=== PATIENT | female | born 2000 | race Hispanic/Latino ===

== ENCOUNTER 2022-02-08 14:56 | Inpatient (IN) | payer MEDICAID, OTHER, SELFPAY ==
[~2022-02-08 14:56] MED LIST: Lidocaine 2% MPF 10 ML AMP (For Epidural Use) ONE
[2022-02-08 15:27] VITALS: BMI 33.2
[2022-02-08] MEDS ORDERED: Promethazine HCl 25 MG/ML VIAL IM PRN ×2 (15:45→18:33)
[2022-02-08] MEDS ORDERED: hydrALAZINE 20 MG/ML VIAL SLOW IVP PRN (15:45)
[2022-02-08] MEDS ORDERED: HYDROcodone/Acetaminophen 5/325 mg Tablet PO PRN ×2 (15:45)
[2022-02-08] MEDS ORDERED: Ibuprofen 800 MG TAB PO PRN (15:45)
[2022-02-08] MEDS ORDERED: Lidocaine 1% (PF) 30 ML VIAL SC PRN (15:45)
[2022-02-08] MEDS ORDERED: Penicillin G Potassium 5 MILL.UNITS in Sodium Chloride 0.9% 100 ML IVPB SCH (15:45)
[2022-02-08] MEDS ORDERED: Lactated Ringer's 1,000 ML IV SCH ×2 (15:45)
[2022-02-08] MEDS ORDERED: Butorphanol Tartrate 1 MG/ML VIAL SLOW IVP PRN (15:45)
[2022-02-08] MEDS ORDERED: Ondansetron PF 4 MG/2 ML Vial IVP PRN ×2 (15:45→18:33)
[2022-02-08] MEDS ORDERED: NS w/ Oxytocin 30 units 500 ML IV SCH ×2 (15:45)
[2022-02-08] MEDS ORDERED: Penicillin G Potassium 5 MILL.UNITS VIAL ONE (15:47)
[2022-02-08 16:39] LABS: Hemoglobin 12.4 g/dL (12.0-15.5); Mean Corpuscular HGB CONC 34.2 g/dL (32.0-36.0); Mean Corpuscular Hemoglobin 28.1 pg (27.0-33.0); Mean Corpuscular Volume 82.1 fl (81.6-98.3); Mean Platelet Volume 14.3 fl (7.4-10.4); Platelet Count 147 10x3/uL (150-450); RBC Distribution Width 13.5 % (11.5-14.5); Red Blood Cell (RBC) Count 4.42 10x6/uL (3.90-5.03); White Blood Cell (WBC) Count 7.7 10x3/uL (3.5-10.5)
[2022-02-08 17:14] LABS: HBSAg Index 0.18 S/CO (0-0.99); HIV (1/2) Antibody/Antigen Non-Reactive (NonReactive); HIV 1/2 INDEX 0.12 S/CO (<1.00); Hep B Surf Ag Non-Reactive S/CO (NonReactive)
[2022-02-08 17:14] LABS: Syphilis Antibody Nonreactive (Nonreactive); Syphilis Antibody Index 0.03 S/CO (<1.00 Non-Reactive)
[2022-02-08 17:29] LABS: SARS-CoV-2 NAA Rapid Test Not Detected (NotDetected)
[2022-02-08] MEDS ORDERED: Fentanyl 2 mcg/Bup 0.1% Cadd 100 ML ONE (18:01)
[2022-02-08] MEDS ORDERED: Naloxone HCl 0.4 mg/ml Vial IVP PRN ×2 (18:33)
[2022-02-08] MEDS ORDERED: Moisturizing Cream (Eucerin) 113 GM JAR TOP PRN (18:33)
[2022-02-08] MEDS ORDERED: diphenhydrAMINE 50 MG/ML VIAL IVP PRN (18:33)
[2022-02-08] MEDS ORDERED: Acetaminophen 325 MG TAB PO PRN (18:33)
[2022-02-08] MEDS ORDERED: ePHEDrine Sulfate 50 MG/10 ML VIAL SLOW IVP PRN (18:33)
[2022-02-08] MEDS ORDERED: Fentanyl 2 mcg/Bupivacaine 0.1% Cassette 100 ML EPIDURAL SCH (18:45)
[2022-02-08] MEDS ORDERED: Communication Order-Pharmacy FS SCH (18:45)
[2022-02-08] MEDS ORDERED: Lactated Ringer's 500 ML IV PRN (18:55)
[2022-02-08 19:00] LABS: Amphetamine Not Detected (NotDetected); Barbiturates Screen Detected (NotDetected); Benzodiazepine Screen Not Detected (NotDetected); Cocaine Metabolite Screen Not Detected (NotDetected); Methadone Not Detected (NotDetected); Methamphetamine Not Detected (NotDetected); Opiate Screen Not Detected (NotDetected); Oxycodone Screen Not Detected (NotDetected); Phencyclidine (PCP) Not Detected (NotDetected); THC/Cannabinoid Screen Not Detected (NotDetected); Tricyclic Screen Not Detected (NotDetected)
[2022-02-08] MEDS ORDERED: Penicillin G 2.5 MILL.units 2.5 MILL.UNITS in Premix Bag 1 BAG IVPB SCH (19:45)
[2022-02-08] MEDS ORDERED: Lidocaine 1% (PF) 30 ML VIAL ONE (21:36)
[2022-02-08] MEDS ORDERED: NS w/ Oxytocin 30 units 500 ML ONE (21:37)
[2022-02-08 22:42] LABS: HBSAB Concentration 153.24 mIU/mL; Hep B Surf AB Reactive (NonReactive)
[2022-02-09] MEDS ORDERED: Benzocaine-Menthol 82.5 ML CAN TOP PRN (01:42)
[2022-02-09] MEDS ORDERED: Milk Of Magnesia 30 ML UDCUP PO PRN (01:42)
[2022-02-09] MEDS ORDERED: diphenhydrAMINE 25 MG CAP PO PRN (01:42)
[2022-02-09] MEDS ORDERED: NS w/ Oxytocin 30 units 500 ML IV SCH (01:42)
[2022-02-09] MEDS ORDERED: Promethazine HCl 25 MG/ML VIAL IM PRN (01:42)
[2022-02-09] MEDS ORDERED: Ondansetron PF 4 MG/2 ML Vial IVP PRN (01:42)
[2022-02-09] MEDS ORDERED: hydrALAZINE 20 MG/ML VIAL SLOW IVP PRN (01:42)
[2022-02-09] MEDS ORDERED: Preparation H Ointment 28 GM TUBE PR PRN (01:42)
[2022-02-09] MEDS ORDERED: Boostrix 0.5 ML (Tdap) VIAL (>/=7 yrs of age) IM ONE (01:42)
[2022-02-09] MEDS ORDERED: HYDROcodone/Acetaminophen 5/325 mg Tablet PO PRN ×2 (01:42)
[2022-02-09] MEDS ORDERED: Bisacodyl 10 MG SUPP PR PRN (01:42)
[2022-02-09] MEDS: Ibuprofen 800 MG TAB PO SCH ×3 (06:22→17:27)
[2022-02-09] MEDS: Prenatal Vitamin 1 TAB PO SCH (09:05)
[2022-02-09] MEDS: Docusate 100 MG CAP PO SCH ×2 (09:05→20:34)
[2022-02-10] MEDS: Prenatal Vitamin 1 TAB PO SCH (07:53)
[2022-02-10] MEDS: Docusate 100 MG CAP PO SCH (07:53)
[2022-02-10] MEDS: Ibuprofen 800 MG TAB PO SCH ×2 (07:54)
[2022-02-10 08:21] VITALS: BP 135/67; TEMP 97.8
[2022-02-10] MEDS ORDERED: Ibuprofen 800 MG TAB PO SCH (14:00)
== END 2022-02-10 19:00 | disposition home or self-care (01) | DRG 807 ==
LOC: CSHLD/OP 14:56 → CSHLD 18:18 → CSHPP 02-09 02:10
PROVIDERS: ADMIT Obstetrics & Gynecology; ATTEND Obstetrics & Gynecology
PROC: 10E0XZZ Delivery of Products of Conception, External Approach (ICD-10-PCS; principal; 2022-02-08)
PROC: 0KQM0ZZ Repair Perineum Muscle, Open Approach (ICD-10-PCS; 2022-02-08)
DX: O99.324 Drug use complicating childbirth (principal); Z37.0 Single live birth; O70.1 Second degree perineal laceration during delivery; Z3A.39 39 weeks gestation of pregnancy; Z20.822 Contact with and (suspected) exposure to COVID-19; F19.90 Other psychoactive substance use, unspecified, uncomplicated
CPT/HCPCS: 36415; 51702; 80306; 85027; 86706; 86762; 86780; 86850; 86900; 86901; 87340; 87389; 99285; J2540; J2590; J7120; U0002

== ENCOUNTER 2022-12-10 22:12 | Observation (INO) | payer SELFPAY ==
[2022-12-11] MEDS ORDERED: Ondansetron PF 4 MG/2 ML Vial ONE ×2 (00:52→14:54)
[2022-12-11] MEDS ORDERED: Ketorolac Tromethamine 30 MG/ML VIAL ONE ×2 (00:52→14:54)
[2022-12-11 00:53] LABS: #Eosinphils 0.1 10x3/uL (0.0-0.5); #Monocytes 0.6 10x3/uL (0.0-1.1); #Neutrophils 6.5 10x3/uL (1.5-8.4); %Basophils 0.4 % (0.0-2.0); %Eosinophils 0.9 % (0.0-6.0); %Lymphocytes 23.2 % (18.0-47.0); %Monocytes 6.4 % (0.0-10.0); %Neutrophils 67.9 % (40.0-75.0); Hemoglobin 13.4 g/dL (12.0-15.5); Mean Corpuscular HGB CONC 33.4 g/dL (32.0-36.0); Mean Corpuscular Hemoglobin 29.2 pg (27.0-33.0); Mean Corpuscular Volume 87.4 fl (81.6-98.3); Platelet Count 203 10x3/uL (150-450); RBC Distribution Width 12.3 % (11.5-14.5); Red Blood Cell (RBC) Count 4.59 10x6/uL (3.90-5.03); White Blood Cell (WBC) Count 9.6 10x3/uL (3.5-10.5)
[2022-12-11 01:07] LABS: ALT (SGPT) 428 U/L (8-55); AST (SGOT) 239 U/L (5-34); Albumin 3.9 g/dL (3.5-5.0); Alkaline Phosphatase 95 U/L (40-110); Anion Gap 12 mmol/L (10-20); BUN (Urea Nitrogen) 6 mg/dL (7.0-18.7); Bilirubin, Total 1.5 mg/dL (0.2-1.2); Calc. Creatinine Clearance 0 mL/min (70-130); Calcium 8.5 mg/dL (7.8-10.44); Carbon Dioxide 23 mmol/L (22-29); Chloride 107 mmol/L (98-107); Estimated GFR 122; Globulin 3.1 g/dL (2.4-3.5); Glucose 109 mg/dL (70-105); Lipase 29 U/L (8-78); Potassium 3.2 mmol/L (3.5-5.1); Sodium 139 mmol/L (136-145)
[2022-12-11] MEDS ORDERED: Ondansetron PF 4 MG/2 ML Vial IVP PRN (02:30)
[2022-12-11] MEDS ORDERED: Morphine 4 MG/ML VIAL SLOW IVP PRN (02:32)
[2022-12-11] MEDS ORDERED: Ketorolac Tromethamine 30 MG/ML VIAL IVP PRN (02:32)
[2022-12-11] MEDS ORDERED: Potassium Chloride 20 MEQ in Premix Bag 1 BAG IVPB SCH (02:45)
[2022-12-11] MEDS ORDERED: Potassium Chloride 20 MEQ/100 ML PREMIX BAG ONE (03:10)
[2022-12-11] MEDS: Sodium Chloride 0.9% 1,000 ML IV SCH ×2 (03:24→18:49)
[2022-12-11 04:15] LABS: #Eosinphils 0.1 10x3/uL (0.0-0.5); #Monocytes 0.8 10x3/uL (0.0-1.1); #Neutrophils 5.7 10x3/uL (1.5-8.4); %Basophils 0.4 % (0.0-2.0); %Eosinophils 1.5 % (0.0-6.0); %Lymphocytes 26.2 % (18.0-47.0); %Neutrophils 61.7 % (40.0-75.0); Mean Corpuscular HGB CONC 34.1 g/dL (32.0-36.0); Mean Corpuscular Hemoglobin 29.7 pg (27.0-33.0); Mean Platelet Volume 11.6 fl (7.4-10.4); Platelet Count 196 10x3/uL (150-450); RBC Distribution Width 12.3 % (11.5-14.5); Red Blood Cell (RBC) Count 4.38 10x6/uL (3.90-5.03); White Blood Cell (WBC) Count 9.3 10x3/uL (3.5-10.5)
[2022-12-11 04:31] LABS: Anion Gap 15 mmol/L (10-20); BUN (Urea Nitrogen) 6 mg/dL (7.0-18.7); Calc. Creatinine Clearance 151 mL/min (70-130); Carbon Dioxide 22 mmol/L (22-29); Chloride 107 mmol/L (98-107); Potassium 3.5 mmol/L (3.5-5.1); Sodium 140 mmol/L (136-145)
[2022-12-11 04:32] LABS: ALT (SGPT) 383 U/L (8-55); AST (SGOT) 219 U/L (5-34); Albumin 3.6 g/dL (3.5-5.0); Alkaline Phosphatase 97 U/L (40-110); Bilirubin, Total 2.2 mg/dL (0.2-1.2); Calcium 8.2 mg/dL (7.8-10.44); Estimated GFR 125; Globulin 2.9 g/dL (2.4-3.5); Glucose 94 mg/dL (70-105); Protein, Total 6.5 g/dL (6.0-8.3)
[2022-12-11] MEDS ORDERED: Acetaminophen 500 MG TAB PO PRN (10:25)
[2022-12-11] MEDS ORDERED: traMADol HCl 50 MG TAB PO PRN (10:25)
[2022-12-11] MEDS ORDERED: LevoFLOXacin 750 mg/D5W 750 MG in Premix Bag 1 BAG IVPB SCH (11:00)
[2022-12-11] MEDS ORDERED: Acetaminophen 500 MG TAB PO SCH (11:00)
[2022-12-11] MEDS ORDERED: Ketorolac Tromethamine 30 MG/ML VIAL IVP SCH ×2 (11:00→18:00)
[2022-12-11] MEDS ORDERED: Scopolamine 1.5 mg/72 hour Patch TD SCH (11:00)
[2022-12-11] MEDS ORDERED: Bupivacaine HCl 0.5%/Epinephrine 1:200,000/PF 30 ml Vial ONE (12:59)
[2022-12-11] MEDS ORDERED: PROPOFOL 20 ML ONE (14:53)
[2022-12-11] MEDS ORDERED: Lidocaine 1% PF 5 ML VIAL ONE (14:54)
[2022-12-11] MEDS ORDERED: Rocuronium Bromide 10 MG/ML (10ML VIAL) ONE (14:54)
[2022-12-11] MEDS ORDERED: Midazolam HCl 2 mg/2 ml Vial ONE (14:54)
[2022-12-11] MEDS ORDERED: fentaNYL 50 mcg/mL 1 mL Vial ONE ×2 (14:54→17:06)
[2022-12-11] MEDS ORDERED: Dexamethasone 4 mg/ml Vial ONE (14:54)
[2022-12-11] MEDS ORDERED: Glucagon 1 MG/ML KIT ONE ×2 (15:07→16:28)
[2022-12-11] MEDS ORDERED: Iopamidol 30 ML ONE (15:07)
[2022-12-11] MEDS ORDERED: SUGAMMADEX SODIUM 200 MG/2 ML VIAL ONE (15:50)
[2022-12-11] MEDS ORDERED: Ibuprofen 600 MG TAB PO PRN (16:43)
[2022-12-12] MEDS ORDERED: LevoFLOXacin 750 mg/D5W 750 MG in Premix Bag 1 BAG IVPB SCH (06:00)
[2022-12-12 08:23] VITALS: BP 104/66; TEMP 98
[2022-12-12] MEDS ORDERED: Pantoprazole 40 MG VIAL IVP SCH (09:00)
== END 2022-12-12 12:20 | disposition home or self-care (01) ==
LOC: CSHERS 22:12 → INTOOBSV 12-11 02:29 → CSHERHOLD 12-11 02:29 → CSHTELE 12-11 08:50
PROVIDERS: ADMIT Family Medicine; ATTEND Family Medicine
PROC: 0FT44ZZ Resection of Gallbladder, Percutaneous Endoscopic Approach (ICD-10-PCS; principal; 2022-12-12)
PROC: BF110ZZ Fluoroscopy of Biliary and Pancreatic Ducts using High Osmolar Contrast (ICD-10-PCS; 2022-12-12)
DX: K80.12 Calculus of gallbladder with acute and chronic cholecystitis without obstruction (principal); E80.7 Disorder of bilirubin metabolism, unspecified; Z79.899 Other long term (current) drug therapy; F17.290 Nicotine dependence, other tobacco product, uncomplicated
CPT/HCPCS: 47532; 76705; 80053; 83605; 83690; 85025; 88304; 94760; 94762; 96374; 96375; 96376; C1889; C1894; G0378; J1100; J1611; J1885; J1956; J2250; J2405; J2704; J3010; J3480; J7050; Q9967